=== PATIENT | female | born 1970 | race African-American/Black ===

== ENCOUNTER 2024-12-13 19:20 | Inpatient (IN) | payer OTHER ==
[~2024-12-13] VITALS: Ht 160 cm; Wt 73.5 kg
[~2024-12-13 19:20] MED LIST: PHENYLEPHRINE 100 MCG/ML ONE
[2024-12-13] MEDS: HEPARIN 5000 UNITS/ML VIAL IV ONE (19:39)
[2024-12-13] MEDS: ASPIRIN 325MG TABLET PO ONE (19:39)
[2024-12-13] MEDS ORDERED: LIDOCAINE HCL 1% 20ML VIAL ONE (19:44)
[2024-12-13] MEDS ORDERED: HEPARIN 1000 UNITS/ML 10ML ONE (19:44)
[2024-12-13] MEDS ORDERED: IODIXANOL 320 MG/ML 150ML BOTTLE IV ONE (19:44)
[2024-12-13] MEDS ORDERED: EPINEPHRINE 0.1MG/ML (1:10,000) 10ML SYR ONE (19:51)
[2024-12-13] MEDS ORDERED: ATROPINE SULFATE 1MG/10ML SYR ONE (19:51)
[2024-12-13] MEDS ORDERED: FENTANYL CITRATE/PF 50MCG/ML 2ML VIAL ONE ×2 (19:51→20:48)
[2024-12-13] MEDS ORDERED: MIDAZOLAM HCL 2 MG/2 ML VIAL ONE ×2 (19:53→20:48)
[2024-12-13 19:55] LABS: BASOPHILS % 0.8 % (0.0-2.0); EOSINOPHILS % 1.8 % (0.0-5.0); HEMATOCRIT. 48.7 % (36.0-48.0); HEMOGLOBIN. 15.9 g/dL (12.0-16.0); LYMPHOCYTES % 45.7 % (20.0-50.0); MEAN PLATELET VOLUME 9.3 fl (7.4-10.4); MONOCYTES % 7.4 % (2.0-8.0); NEUTROPHILS % 44.3 % (40.0-76.0); PLATELET 300 x1000/uL (130-400); RED BLOOD CELL COUNT 5.75 mill/uL (4.2-5.4); RED CELL DISTRIBUTION WIDTH 13.7 % (11.6-14.6)
[2024-12-13 20:08] LABS: CREATININE 1.1 mg/dL (0.6-1.0); TROPONIN I HIGH SENSITIVITY 22 ng/L (3.0-34); UREA NITROGEN BLOOD 12 mg/dL (9-23)
[2024-12-13] MEDS ORDERED: KCL 20MEQ/100ML PREMIX 100 ML IV ONE (20:09)
[2024-12-13] MEDS ORDERED: HYDRALAZINE 20MG/ML VIAL IV PRN (20:30)
[2024-12-13] MEDS ORDERED: ACETAMINOPHEN 325MG TABLET PO PRN ×3 (20:30→21:15)
[2024-12-13] MEDS ORDERED: GUAIFENESIN 200MG/10ML SUGAR FREE UDC PO PRN (20:30)
[2024-12-13] MEDS ORDERED: ONDANSETRON HCL 4MG/2ML INJ IV PRN (20:30)
[2024-12-13] MEDS ORDERED: MAGNESIUM/ALUMINUM HYDROXIDE/SIMETHICONE 30ML UDC PO PRN (20:30)
[2024-12-13] MEDS ORDERED: DOCUSATE SODIUM 100MG CAPSULE PO PRN (20:30)
[2024-12-13] MEDS ORDERED: METOPROLOL TARTRATE 5MG/5ML VIAL IV ONE (20:33)
[2024-12-13] MEDS ORDERED: IODIXANOL 320MG/ML 100 ML BOTTLE IV ONE (20:38)
[2024-12-13] MEDS ORDERED: CLOPIDOGREL 75MG TABLET ONE ×2 (21:02→21:05)
[2024-12-13] MEDS ORDERED: ATROPINE SULFATE 1MG/10ML SYR IV PRN (21:15)
[2024-12-13] MEDS ORDERED: MORPHINE SULFATE 2 MG/ML INJ (NOT FOR IM USE) IV PRN (21:15)
[2024-12-13 22:00] VITALS: PULSE 83; RESP 14; TEMP 36.4; O2SAT 99
[2024-12-13] MEDS ORDERED: CARVEDILOL 3.125 MG TABLET PO SCH (22:00)
[2024-12-13] MEDS ORDERED: ASPIRIN 81MG EC TABLET PO SCH (22:00)
[2024-12-13] MEDS: SODIUM CHLORIDE 0.45% 1,000 ML IV ONE (22:02)
[2024-12-13 22:12] VITALS: BP 134/100; PULSE 83; RESP 13; O2SAT 100
[2024-12-13 22:30] VITALS: BP_SYST 130; BP_SYST 134; BP_DIAS 100; BP_DIAS 106; PULSE 76; PULSE 82; RESP 16; RESP 19; TEMP 36.4; O2SAT 98
[2024-12-13 23:00] VITALS: BP 149/96; PULSE 77; RESP 16; O2SAT 99
[2024-12-13 23:30] VITALS: BP 128/94; PULSE 67; RESP 13; O2SAT 100
[2024-12-14] VITALS (68 sets, daily range): BP systolic 102–151; BP diastolic 67–103; PULSE 62–104; RESP 12–33; TEMP 36.7–37; O2SAT 97–100
[2024-12-14] MEDS: ONDANSETRON HCL 4MG/2ML INJ IV PRN (01:26)
[2024-12-14 01:50] LABS: TROPONIN I HIGH SENSITIVITY 11676 ng/L (3.0-34)
[2024-12-14 05:37] LABS: BASOPHILS % 0.2 % (0.0-2.0); EOSINOPHILS % 0.1 % (0.0-5.0); HEMATOCRIT. 45.0 % (36.0-48.0); HEMOGLOBIN. 14.6 g/dL (12.0-16.0); LYMPHOCYTES % 11.4 % (20.0-50.0); MEAN PLATELET VOLUME 8.5 fl (7.4-10.4); MONOCYTES % 4.7 % (2.0-8.0); NEUTROPHILS % 83.6 % (40.0-76.0); PLATELET 266 x1000/uL (130-400); RED BLOOD CELL COUNT 5.30 mill/uL (4.2-5.4); RED CELL DISTRIBUTION WIDTH 13.8 % (11.6-14.6)
[2024-12-14 05:51] LABS: CREATININE 0.9 mg/dL (0.6-1.0); TRIGLYCERIDE 103 mg/dL (0-150); UREA NITROGEN BLOOD 9 mg/dL (9-23)
[2024-12-14 05:52] LABS: LDL CHOLESTEROL 212 mg/dL (5-100)
[2024-12-14 05:55] LABS: T4 FREE 1.19 ng/dL (0.89-1.76)
[2024-12-14 08:27] LABS: TROPONIN I HIGH SENSITIVITY 16469 ng/L (3.0-34)
[2024-12-14] MEDS: ASPIRIN 81MG TABLET PO SCH (08:28)
[2024-12-14] MEDS: PANTOPRAZOLE SODIUM 40 MG/VIAL IV SCH (08:28)
[2024-12-14] MEDS: AMLODIPINE 10MG TABLET PO SCH (08:29)
[2024-12-14] MEDS: CARVEDILOL 3.125 MG TABLET PO SCH (08:29)
[2024-12-14] MEDS: CLOPIDOGREL 75MG TABLET PO SCH (08:29)
[2024-12-14] MEDS ORDERED: NALOXONE HCL 0.4MG/ML VIAL IV PRN (10:45)
[2024-12-14 13:58] LABS: TROPONIN I HIGH SENSITIVITY 12531 ng/L (3.0-34)
[2024-12-14] MEDS: ATORVASTATIN CALCIUM 40MG TABLET PO SCH (20:36)
[2024-12-14] MEDS: ENOXAPARIN 40MG/0.4ML SYR SUBCUT SCH (20:37)
[2024-12-14 20:43] LABS: ASPARTATE AMINOTRANSFERASE 94 IU/L (<34); BILIRUBIN DIRECT 0.1 mg/dL (<=3.0); BILIRUBIN TOTAL 0.6 mg/dL (0.1-1.0); PROTEIN TOTAL 7.4 g/dL (6.0-8.3)
[2024-12-15] VITALS (17 sets, daily range): BP systolic 113–135; BP diastolic 80–110; PULSE 62–86; RESP 12–20; TEMP 36.7–36.9; O2SAT 96–100
[2024-12-15 06:36] LABS: BASOPHILS % 0.5 % (0.0-2.0); EOSINOPHILS % 0.6 % (0.0-5.0); HEMATOCRIT. 45.1 % (36.0-48.0); HEMOGLOBIN. 15.0 g/dL (12.0-16.0); LYMPHOCYTES % 21.0 % (20.0-50.0); MEAN PLATELET VOLUME 8.8 fl (7.4-10.4); MONOCYTES % 10.3 % (2.0-8.0); NEUTROPHILS % 67.6 % (40.0-76.0); PLATELET 293 x1000/uL (130-400); RED BLOOD CELL COUNT 5.35 mill/uL (4.2-5.4); RED CELL DISTRIBUTION WIDTH 13.4 % (11.6-14.6)
[2024-12-15 06:51] LABS: CREATININE 1.0 mg/dL (0.6-1.0); UREA NITROGEN BLOOD 13 mg/dL (9-23)
[2024-12-15] MEDS: POTASSIUM CHLORIDE 20MEQ TABLET SR PO NR ×2 (08:39→11:05)
[2024-12-15] MEDS: LISINOPRIL 5MG TABLET PO SCH (11:06)
[2024-12-15] MEDS ORDERED: LIP40 PO (12:33)
[2024-12-15] MEDS ORDERED: LISI-186 PO (12:33)
[2024-12-15] MEDS ORDERED: COR3 PO (12:33)
[2024-12-15] MEDS ORDERED: CLOP-31 PO (12:33)
[2024-12-15] MEDS ORDERED: ASPI-1160 PO (12:33)
== END 2024-12-15 15:10 | disposition home or self-care (01) | DRG 322 ==
LOC: ER 19:20 → EDBEDREQ 19:39 → ENRESERV 19:53 → CVICU 21:40
PROVIDERS: ADMIT Hospitalist; ATTEND Hospitalist
PROC: 027035Z Dilation of Coronary Artery, One Artery with Two Drug-eluting Intraluminal Devices, Percutaneous Approach (ICD-10-PCS; principal; 2024-12-13)
PROC: 4A023N7 Measurement of Cardiac Sampling and Pressure, Left Heart, Percutaneous Approach (ICD-10-PCS; 2024-12-13)
PROC: B211YZZ Fluoroscopy of Multiple Coronary Arteries using Other Contrast (ICD-10-PCS; 2024-12-13)
PROC: B215YZZ Fluoroscopy of Left Heart using Other Contrast (ICD-10-PCS; 2024-12-13)
DX: I21.19 ST elevation (STEMI) myocardial infarction involving other coronary artery of inferior wall (principal); E78.5 Hyperlipidemia, unspecified; E87.6 Hypokalemia; E83.51 Hypocalcemia; E83.52 Hypercalcemia; F12.90 Cannabis use, unspecified, uncomplicated; I10 Essential (primary) hypertension; F10.90 Alcohol use, unspecified, uncomplicated; Y90.9 Presence of alcohol in blood, level not specified; Z79.899 Other long term (current) drug therapy; Z79.82 Long term (current) use of aspirin; Z82.49 Family history of ischemic heart disease and other diseases of the circulatory system; Z79.02 Long term (current) use of antithrombotics/antiplatelets
CPT/HCPCS: 36415; 71045; 80048; 80061; 80076; 83605; 83735; 83880; 84439; 84443; 84484; 85025; 85347; 86850; 86900; 92928; 93005; 93306; 93458; 99291; A4606; C1725; C1769; C1874; C1887; C1893; J0461; J1644; J1650; J2003; J2250; J2371; J2405; J2470; J3010; J3480; J3490; Q9967